=== PATIENT | female | born 1930 | race Caucasian/White ===

== ENCOUNTER 2017-05-03 21:18 | Emergency (ER) | payer MEDICARE, BC ==
[2017-05-03 21:46] LABS: BASOPHILS 0.7 % (0-2); EOSINOPHILS 15.8 % (0-7); HEMATOCRIT 40.6 % (36.0-48.0); HEMOGLOBIN 13.4 g/dL (12-16); IMMATURE GRANULOCYTES 0.2 % (0-5); LYMPHOCYTES 18.1 % (15-50); MEAN PLATELET VOLUME 9.9 fL (7.4-10.4); MONOCYTES 10.6 % (2-11); NEUTROPHILS 54.6 % (40-80); PLATELET COUNT 255 10x3/uL (130-400); RBC 4.46 10x6/uL (4.00-5.40); WBC 13.6 10x3/uL (4.8-10.8)
[2017-05-03 21:54] LABS: APPEARANCE CLEAR (CLEAR); BILIRUBIN NEGATIVE (NEGATIVE); COLOR STRAW (YELLOW); GLUCOSE NEGATIVE (NEGATIVE); KETONE NEGATIVE (NEGATIVE); NITRITE NEGATIVE (NEGATIVE); PH 5.5 (5.0-6.0); PROTEIN NEGATIVE (NEGATIVE); SPECIFIC GRAVITY 1.005 (1.005-1.020); UROBILINOGEN NORMAL (NORMAL)
[2017-05-03 21:59] LABS: ALBUMIN 3.9 g/dL (3.4-5.0); ANION GAP 11.9 mmol/L (8-16); BILIRUBIN - TOTAL 0.3 mg/dL (0.2-1.3); CALCIUM 8.7 mg/dL (8.5-10.1); CARBON DIOXIDE 28.6 mmol/L (21.0-32.0); POTASSIUM - SERUM 3.5 mmol/L (3.5-5.1); PROTEIN - SERUM 8.3 g/dL (6.4-8.2)
[2017-05-03 22:02] LABS: BACTERIA FEW /hpf (NONE SEEN); EPITHELIAL CELLS 0-5 /hpf (0-5); RED CELLS - URINE 0-5 /hpf (0-5); WHITE CELLS - URINE 0-5 /hpf (0-5)
== END 2017-05-04 00:17 | disposition home or self-care (01) ==
LOC: D.ER 21:18
PROVIDERS: Emergency Medicine
DX: F03.90 Unspecified dementia, unspecified severity, without behavioral disturbance, psychotic disturbance, mood disturbance, and anxiety (principal); I10 Essential (primary) hypertension; E03.9 Hypothyroidism, unspecified; G40.909 Epilepsy, unspecified, not intractable, without status epilepticus

== ENCOUNTER 2019-07-15 20:40 | Inpatient (IN) | payer MEDICARE, BC ==
[~2019-07-15] VITALS: Ht 162.6 cm; Wt 59.0 kg
[2019-07-15] MEDS ORDERED: BAYER CHEWABLE81 MG PO (20:48)
[2019-07-15] MEDS ORDERED: CLARITIN 10 MG10 MG PO (20:48)
[2019-07-15] MEDS ORDERED: CYANOCOBAL1000 MCG/4 SC (20:49)
[2019-07-15] MEDS ORDERED: TIROSINT88 MCG PO (20:51)
[2019-07-15] MEDS ORDERED: HYDROXYZINE HCL10 MG PO (20:51)
[2019-07-15] MEDS ORDERED: KEPPRA250 MG PO (20:51)
[2019-07-15] MEDS ORDERED: PRINIVIL20 MG PO (20:52)
[2019-07-15] MEDS ORDERED: PEPCID AC20 MG PO (20:52)
[2019-07-15] MEDS ORDERED: PROPRANOLOL HCL20 MG PO (20:52)
[2019-07-15] MEDS ORDERED: ALBUTEROL0.63 MG/3 INH (20:53)
[2019-07-15] MEDS ORDERED: MULTI-DAY VITAM1 TAB PO (20:53)
[2019-07-15] MEDS ORDERED: CETAPHIL MOISTU85 GM TOPICAL (20:54)
[2019-07-15] MEDS ORDERED: DIMAPHEN DM EL118 ML PO (20:54)
[2019-07-15] MEDS ORDERED: VISTARIL25 MG PO (20:55)
[2019-07-15] MEDS ORDERED: IMODIUM2 MG PO (20:55)
[2019-07-15] MEDS ORDERED: ROBITUSSIN DM 110 ML PO (20:56)
[2019-07-15] MEDS ORDERED: NITROQUICK0.4 MG SL (20:56)
[2019-07-15] MEDS ORDERED: TESSALON PERLE100 MG PO (20:56)
[2019-07-15] MEDS ORDERED: KENALOG 0.1 % O15 GM TOPICAL (20:56)
[2019-07-15] MEDS ORDERED: ACETAMINOPHEN325 MG PO (20:57)
[2019-07-15] MEDS ORDERED: GUAIFEN-CODEINE10 ML PO (20:57)
[2019-07-15] MEDS ORDERED: ZOFRAN ODT4 MG/UDTAB PO (20:58)
[2019-07-15 21:14] LABS: BASOPHILS 0.5 % (0-2); EOSINOPHILS 3.3 % (0-7); HEMATOCRIT 38.9 % (36.0-48.0); HEMOGLOBIN 12.8 g/dL (12-16); IMMATURE GRANULOCYTES 0.6 % (0-5); LYMPHOCYTES 14.8 % (15-50); MCH 29.3 pg (26.0-34.0); MCHC 32.9 g/dL (31.0-37.0); MEAN PLATELET VOLUME 8.8 fL (7.4-10.4); NEUTROPHILS 67.8 % (40-80); PLATELET COUNT 231 10x3/uL (130-400); RBC 4.37 10x6/uL (4.00-5.40); RDW 14.2 % (11.5-14.5); WBC 11.7 10x3/uL (4.8-10.8)
[2019-07-15 21:16] LABS: CALC OSMOLALITY 263 mosm/kg (275-300); CALCIUM 8.6 mg/dL (8.5-10.1); CARBON DIOXIDE 27.1 mmol/L (21.0-32.0); CHLORIDE - SERUM 95 mmol/L (98-107); CREATININE - SERUM 0.7 mg/dL (0.6-1.3); GLUCOSE 121 mg/dL (74-106); POTASSIUM - SERUM 3.7 mmol/L (3.5-5.1); SODIUM 131 mmol/L (136-145); UREA NITROGEN 12 mg/dL (7-18); eGFR NON AFRICAN AMERICAN 83 mL/min (90-120)
[2019-07-15 21:26] LABS: ALBUMIN 3.3 g/dL (3.4-5.0); ALKALINE PHOSPHATASE 119 U/L (30-120); ALT (SGPT) 22 U/L (10-68); BILIRUBIN - TOTAL 0.59 mg/dL (0.2-1.3); PROTEIN - SERUM 7.6 g/dL (6.4-8.2)
[2019-07-15 21:38] LABS: BACTERIA MANY /hpf (NEGATIVE); BILIRUBIN NEGATIVE (NEGATIVE); EPITHELIAL CELLS 0-5 /hpf (0-5); GLUCOSE NEGATIVE (NEGATIVE); KETONE NEGATIVE (NEGATIVE); NITRITE POSITIVE (NEGATIVE); RED CELLS - URINE OCC /hpf (0-5); UROBILINOGEN NORMAL (NORMAL)
--- NOTE | 2019-07-15 23:55 | NUR ---
ADMITTED TO ROOM ALERT BUT CONFUSED, INSISTING ON NEED TO GO TO BATHROOM, BEDPAN GIVEN WITH NO RESULTS, SEE ASSESSMENT CALL LIGHT IN REACH
[2019-07-16] VITALS: BP 154/66
--- NOTE | 2019-07-16 00:30 | NUR ---
ASSISTED UP TO BATHROOM, VOIDED WITHOUT DIFFICULTY, BACK TO BED CASTRO ALARM AND FALL PRECAUTIONS IN PLACE
[2019-07-16 01:05] VITALS: BP 154/66; BMI 22.3
[2019-07-16 04:00] VITALS: BP 174/53
[2019-07-16 05:26] LABS: BASOPHILS 0.6 % (0-2); IMMATURE GRANULOCYTES 0.5 % (0-5); LYMPHOCYTES 15.4 % (15-50); MCHC 32.5 g/dL (31.0-37.0); MCV 89.3 fL (80.0-100.0); MEAN PLATELET VOLUME 9.1 fL (7.4-10.4); MONOCYTES 13.5 % (2-11); PLATELET COUNT 277 10x3/uL (130-400); RBC 4.48 10x6/uL (4.00-5.40); RDW 14.4 % (11.5-14.5)
[2019-07-16 06:36] LABS: ALBUMIN 3.1 g/dL (3.4-5.0); ALKALINE PHOSPHATASE 112 U/L (30-120); BILIRUBIN - TOTAL 0.41 mg/dL (0.2-1.3); CALCIUM 8.7 mg/dL (8.5-10.1); CARBON DIOXIDE 27.5 mmol/L (21.0-32.0); CHLORIDE - SERUM 101 mmol/L (98-107); CREATININE - SERUM 0.6 mg/dL (0.6-1.3); GLUCOSE 114 mg/dL (74-106); MAGNESIUM - SERUM 1.8 mg/dL (1.8-2.4); PHOSPHOROUS 3.1 mg/dL (2.5-4.9); POTASSIUM - SERUM 3.2 mmol/L (3.5-5.1); PROTEIN - SERUM 7.3 g/dL (6.4-8.2); SODIUM 137 mmol/L (136-145); THYROID STIMULATING HORMONE 2.09 uIU/mL (0.36-3.74); eGFR NON AFRICAN AMERICAN > 90 mL/min (90-120)
[2019-07-16 06:45] LABS: WBC 8.7 10x3/uL (4.8-10.8)
[2019-07-16 06:49] LABS: ALT (SGPT) 16 U/L (10-68); CALC OSMOLALITY 272 mosm/kg (275-300); UREA NITROGEN 8 mg/dL (7-18)
--- NOTE | 2019-07-16 09:00 | NUR ---
ALERT WITH INTERMITTANT CONFUSION.FALL PRECAUTIONS IN PLACE. IV TO LEFT F/A WITH NO S/S OF INFECTION/INFILTRATION. HRRR AND LUNGS CTA. NO PERIPHERAL EDEMA NOTED. ENCOURAGED TO USE CALL LIGHT FOR ASSSIT. DENIES ANY PAIN OR DISCOMFORT AT THIS TIME.
[2019-07-16 09:28] VITALS: BP 149/67
[2019-07-16 12:46] VITALS: Ht 162.6 cm; Wt 59.0 kg
[2019-07-16 13:01] VITALS: BP 148/79
[2019-07-16 15:45] VITALS: BP 155/80
--- NOTE | 2019-07-16 19:30 | NUR ---
PATIENT ALERT AND PLEASENTLY CONFUSED. PATIENT HAS PULLED OUT THE LEFT FOREARM IV. DISCARDED WITH CATH INTACT. PATIENT DENIES PAIN AND DOES NOT APPEAR IRRITABLE OR IF SHE IS IN PAIN AT THIS TIME. STATES SHE NEEDS TO USE THE BATHROOM. ASSISTED TO BEDSIDE COMMODE. PATIENT TRANSFERS WELL WITH ONE PERSON ASSIST. RETURNED BACK TO BED SAFETLY. FALL PREACUTIONS IN PLACE, INCLUDING CASTRO MAT AND SIDE RAILS. CALL LIGHT CLOSE TO PATIENT. PATIENT ROOM CLOSE TO NURSING STATION FOR CONTINUOUS MONITORING. CPOC.
--- NOTE | 2019-07-16 21:15 | NUR ---
RESITED IV TO THE LEFT FOREARM. PLACED "SLEEVE COVERING" OVER IV SITE TO PREVENT PATIENT FROM PULLING OUT. EXPLAINED IMPORTANCE OF ANTIBIOTICS. PATIENT REMAINS PLEASENTLY CONFUSED. DENIES NEEDS. CPOC.
[2019-07-17] VITALS: BP 151/71
[2019-07-17 04:00] VITALS: BP 143/71
[2019-07-17 06:05] LABS: EOSINOPHILS 4.9 % (0-7); HEMATOCRIT 37.5 % (36.0-48.0); HEMOGLOBIN 12.3 g/dL (12-16); IMMATURE GRANULOCYTES 0.4 % (0-5); LYMPHOCYTES 13.9 % (15-50); MCH 29.2 pg (26.0-34.0); MCHC 32.8 g/dL (31.0-37.0); MCV 89.1 fL (80.0-100.0); MEAN PLATELET VOLUME 9.1 fL (7.4-10.4); MONOCYTES 12.2 % (2-11); NEUTROPHILS 67.6 % (40-80); PLATELET COUNT 267 10x3/uL (130-400); RBC 4.21 10x6/uL (4.00-5.40); RDW 14.6 % (11.5-14.5); WBC 8.4 10x3/uL (4.8-10.8)
[2019-07-17 06:10] LABS: CALC OSMOLALITY 272 mosm/kg (275-300); CALCIUM 8.6 mg/dL (8.5-10.1); CARBON DIOXIDE 25.7 mmol/L (21.0-32.0); CHLORIDE - SERUM 104 mmol/L (98-107); CREATININE - SERUM 0.5 mg/dL (0.6-1.3); GLUCOSE 108 mg/dL (74-106); MAGNESIUM - SERUM 1.7 mg/dL (1.8-2.4); PHOSPHOROUS 3.5 mg/dL (2.5-4.9); POTASSIUM - SERUM 3.6 mmol/L (3.5-5.1); SODIUM 137 mmol/L (136-145); UREA NITROGEN 6 mg/dL (7-18); eGFR NON AFRICAN AMERICAN > 90 mL/min (90-120)
[2019-07-17 08:32] VITALS: BP 158/76
--- NOTE | 2019-07-17 09:00 | NUR ---
ALERT WITH CONFUSION WITH BED ALARM INTACT PATINET ATTEMPTED TO GET UP TO BSC UNASSSITED. AMBULATED WITH ASSSIT X1 TO BSC FOR VOIDING. DENIES ANY PAIN OR DISCOMFORT AT THIS TIME. PATIENT CONSUMED 100% BREAKFAST AND CONSUMED 620CC FLUID FOR BREAKFAST. ENCOURAGED TO USE CALL LIGHT FOR ASSSIT WITH FALL PRECAUTIONS IN PLACE. NO IV AT THIS TIME DUE TO PATINET PULLING OUT.MAGNESIUM REPLACED PER PROTOCOL.
[2019-07-17 11:47] VITALS: BP 116/84
[2019-07-17 15:48] VITALS: BP 148/85
--- NOTE | 2019-07-17 19:15 | NUR ---
PATIENT PLEASENTLY CONFUSED. NO IV AT THIS TIME. UNLABORED RESPIRATIONS. ACTIVE BOWEL SOUNDS. BEDSIDE COMMODE CLOSE. FALL PRECAUTIONS IN PLACE. CPOC.
[2019-07-17 20:00] VITALS: BP 144/80
--- NOTE | 2019-07-17 21:00 | NUR ---
RESITED IV TO THE LEFT FOREARM. COVERED WITH SLEEVE FOR PROTECTION. DENIES PAIN OR DISCOMFORT. CPOC.
--- NOTE | 2019-07-17 23:10 | NUR ---
PATIENT PULLED IV OUT. CATH INTACT.
[2019-07-18] VITALS: BP 109/44
--- NOTE | 2019-07-18 00:19 | NUR ---
RESITED IV TO THE LFA. 22 G. X1 ATTEMPT
--- NOTE | 2019-07-18 02:14 | NUR ---
I have reviewed this patient and I concur with the Shift Assessment completed by the Licensed Practical Nurse today this shift.
[2019-07-18 04:00] VITALS: BP 149/69
--- NOTE | 2019-07-18 04:59 | NUR ---
BED BATH AND LINEN CHANGE PROVIDED. PATIENT ASSITED IN ADL
[2019-07-18 05:47] LABS: BASOPHILS 0.9 % (0-2); CALC OSMOLALITY 270 mosm/kg (275-300); CALCIUM 8.7 mg/dL (8.5-10.1); CARBON DIOXIDE 27.4 mmol/L (21.0-32.0); CHLORIDE - SERUM 101 mmol/L (98-107); CREATININE - SERUM 0.6 mg/dL (0.6-1.3); GLUCOSE 113 mg/dL (74-106); HEMATOCRIT 36.9 % (36.0-48.0); HEMOGLOBIN 12.2 g/dL (12-16); IMMATURE GRANULOCYTES 0.4 % (0-5); LYMPHOCYTES 15.3 % (15-50); MCH 29.3 pg (26.0-34.0); MCHC 33.1 g/dL (31.0-37.0); MCV 88.5 fL (80.0-100.0); MEAN PLATELET VOLUME 9.1 fL (7.4-10.4); NEUTROPHILS 65.4 % (40-80); PHOSPHOROUS 3.7 mg/dL (2.5-4.9); PLATELET COUNT 266 10x3/uL (130-400); POTASSIUM - SERUM 3.4 mmol/L (3.5-5.1); RBC 4.17 10x6/uL (4.00-5.40); RDW 14.5 % (11.5-14.5); SODIUM 136 mmol/L (136-145); UREA NITROGEN 6 mg/dL (7-18); eGFR NON AFRICAN AMERICAN > 90 mL/min (90-120)
[2019-07-18 07:38] VITALS: BP 156/78
--- NOTE | 2019-07-18 08:10 | NUR ---
ALERT WITH CONFUSION. FALL PRECAUTIONS IN PLACE. LUNGS CTA AND HRRR. DENIES ANY PAIN AT THIS TIME. IV TO LEFT F/A WITH IVF INFUSING AT PRESCRIBED RATE. NO PERIPHERAL EDEMA NOTED WITH PEDAL PULSES NOTED. REQUIRES SBA TO BSC.
--- NOTE | 2019-07-18 08:17 | NUR ---
DAUGHTER ANUEL VAZQUEZ CALLED REQUESTING DOCTOR CALL FOR UPDATE ON MOTHERS CONDITION AT [phone].
[2019-07-18 13:03] VITALS: BP 133/69
[2019-07-18] MEDS ORDERED: OMNICEF300 MG PO (13:04)
--- NOTE | 2019-07-18 14:00 | NUR ---
IV DISCONTINUED WITH REPORT CALLED TO TAMMY CONTRERAS LPN WITH COPIES GIVEN TO GRINDER AND PLATER. PATIENT UNABLE TO COMPREHEND DUE TO DISEASE PROCESS. PATIENT DRESSED AND STABLE UPON DEPRTURE UNDER CARE OF [facility] CARE STAFF
--- NOTE | 2019-07-18 18:08 | MORECARE ---
CASE MANAGEMENT DISCHARGE SUMMARY PATIENT: CARLA COSME UNIT: [id number] ADM DATE: 07/15/19 AGE: 89 : 30 SEX: F ROOM/BED: D.2224 AUTHOR: DEANDRA LAINEZ PHYSICIAN: REFERRING PHYSICIAN: RC HUGGINS MD DATE OF SERVICE: 07/18/19 Discharge Plan Patient Name: CARLA COS[facility] [facility] 1930 Planned Disposition: Assisted Living Anticipated Discharge Date: Discharge Date: 07/18/2019 Expected LOS: Initial Reviewer: [email or web address] Initial Review Date: 07/16/2019 Generated: 07/18/19 7:08 pm DCPIA - Discharge Planning Initial Assessment Updated by [email or web address]: Destiny Estrella on 07/18/19 6:07 pm * Is the patient Alert and Oriented? No * How many steps to enter\exit or inside your home? * PCP [facility] * Pharmacy [facility] * Preadmission Environment Assisted Living * Facility Name [facility] * ADLs Independent * List name and contact numbers for known caregivers / representatives who currently or will assist patient after discharge: ANUEL VAZQUEZ - DAUGHTER - [phone] * Verbal permission to speak to the caregivers and representatives has been obtained from the patient. Yes * Community resources currently utilized None * Additional services required to return to the preadmission environment? No * Can the patient safely return to the preadmission environment? Yes * Has this patient been hospitalized within the prior 30 days at any hospital? No Patient Name: CARLA COSME Page [id number] at 1808 All edits/amendments must be made on the electronic document DICTATION DATE: 07/18/191807 HAND INSPECTOR: POP 07/18/191807 RPT#: [id number] DC DATE:07/18/19 STATUS: DIS IN [facility] [address] [place] [address] END OF REPORT
--- NOTE | 2019-07-18 18:15 | MORECARE ---
CASE MANAGEMENT DISCHARGE SUMMARY PATIENT: CARLA COSME UNIT: [id number] ADM DATE: 07/15/19 AGE: 89 : 30 SEX: F ROOM/BED: D.2224 AUTHOR: MIGEL,DOC PHYSICIAN: REFERRING PHYSICIAN: RC HUGGINS MD DATE OF SERVICE: 07/18/19 Discharge Plan Patient Name: CARLA COSME Facility: [facility]:[place] : 1930 Planned Disposition: Assisted Living Anticipated Discharge Date: Discharge Date: 07/18/2019 Expected LOS: Initial Reviewer: [email or web address] Initial Review Date: 07/16/2019 Generated: 07/18/19 7:15 pm Comments DCP- Discharge Planning Updated by [email or web address]: Destiny Estrella on 07/18/19 5:[address] Patient Name: CARLA COSME Admission Status: ER Accout number: [id number] Admission Date: 07-15-2019 : 1930 Admission Diagnosis:URINARY TRACT INFECTION, SITE NOT SPECIFIED Attending: RC CALVO Current LOS: 3 Anticipated DC Date: Planned Disposition: Assisted Living Primary Insurance: MEDICARE A & B Discharge Planning Comments: CM spoke with patient at bedside she was slightly confused. CM spoke with patient's daughter Anuel [phone] and the plan is for patient to return to [facility]. CM contacted Марина with [facility] and she stated that she will have a food service driver here to pick patient up @ 1330 today. D/C IMM signed CM will continue to follow and assist as needed with discharge planning / needs. Media Aid: Destiny Estrella DCPIA - Discharge Planning Initial Assessment Updated by [email or web address]: Destiny Estrella on 07/18/19 6:07 pm * Is the patient Alert and Oriented? No * How many steps to enter\exit or inside your home? * PCP [facility] * Pharmacy [facility] * Preadmission Environment Assisted Living * Facility Name [facility] * ADLs Independent * List name and contact numbers for known caregivers / representatives who currently or will assist patient after discharge: ANUEL VAZQUEZ - DAUGHTER - [phone] * Verbal permission to speak to the caregivers and representatives has been obtained from the patient. Yes * Community resources currently utilized None * Additional services required to return to the preadmission environment? No * Can the patient safely return to the preadmission environment? Yes * Has this patient been hospitalized within the prior 30 days at any hospital? No Coverage Notice Reviewer: [email or web address] Delia Estrella Notice Issued Date-Time: 07/18/2019 13:10 Notice Type: IM Discharge Notice Notice Delivered To: Patient Relationship to Patient: Self Clean Up Person Name: Delivery Method: HAND - Hand Delivered Tashia Days: Prior Verbal Notification: Recipient Understood Notice: Yes Recipient Signature: Yes Med Rec Note Co-signed by Attending: Coverage Notice Comment: d/c imm signed and copy left with patient Last DP export: 07/18/19 5:08 pm Patient Name: CARLA COSME Page [id number] at 1815 All edits/amendments must be made on the electronic document DICTATION DATE: 07/18/191814 INDEPENDENT LIVING SPECIALIST: POP 07/18/191814 RPT#: [id number] DC DATE:07/18/19 STATUS: DIS IN [facility] [address] [place] [address] END OF REPORT
== END 2019-07-18 14:00 | disposition home or self-care (01) | DRG 689 ==
LOC: D.ER 20:40 → D.MS 22:55
PROVIDERS: Family Medicine; ADMIT Family Medicine Adult Medicine; ATTEND Family Medicine Adult Medicine
DX: N39.0 Urinary tract infection, site not specified (principal); G93.41 Metabolic encephalopathy; E87.1 Hypo-osmolality and hyponatremia; I10 Essential (primary) hypertension; I25.10 Atherosclerotic heart disease of native coronary artery without angina pectoris; K21.9 Gastro-esophageal reflux disease without esophagitis; E03.9 Hypothyroidism, unspecified; F03.90 Unspecified dementia, unspecified severity, without behavioral disturbance, psychotic disturbance, mood disturbance, and anxiety